=== PATIENT | female | born 1970 | race African-American/Black ===

== ENCOUNTER 2017-04-24 15:49 | Emergency (ER) | payer OTHER ==
[2017-04-24 15:54] VITALS: BP 137/87; PULSE 96; TEMP 98.3; BMI 28.9
--- NOTE | 2017-04-24 16:31 | PDOC ---
History of Present Illness - General Chief Complaint: Pain Stated Complaint: RT ARM LUMP Time Seen by Provider: 04/24/17 16:06 History Source: Patient Exam Limitations: No Limitations - History of Present Illness Initial Comments: 04/24/17 16:23 46 yr female with c/o right upper arm swelling noticed yesterday. Pt denies trauma. Pt states slight tender to touch. pt has DM< HTN, high cholesterol. Occurred: reports: yesterday Severity: reports: mild Upper Extremity Pain Location: right: arm (distsal humerus soft tissue swelling) Method of Injury: reports: unknown Past History - Past Medical History Allergies/Adverse Reactions: Allergies Allergy/AdvReac Type Severity Reaction Status Date / Time insulin detemir Allergy Verified 04/24/17 15:55 [From Levemir] Home Medications: Ambulatory Orders Enalapril Maleate [Vasotec] 10 mg PO HS 09/14/14 Sitagliptin Phos/Metformin HCl [Janumet 50-1,000 mg Tablet] 1 tab PO BID Oxycodone HCl/Acetaminophen [Percocet 5-325 mg Tablet -] 1 combo PO Q6H PRN #10 tablet 09/15/14 Anemia: No Asthma: Yes Cancer: No Cardiac Disorders: No CVA: No COPD: No CHF: No Dementia: No Diabetes: Yes GI Disorders: No Disorders: No HTN: Yes Hypercholesterolemia: No Liver Disease: No Seizures: No Thyroid Disease: No - Surgical History Abdominal Surgery: No Appendectomy: No Cardiac Surgery: No Cholecystectomy: No Lung Surgery: No Neurologic Surgery: No Orthopedic Surgery: No - Family Disease History Family Disease History: Diabetes: Mother - Psycho/Social/Smoking Cessation Hx Anxiety: No Suicidal Ideation: No Smoking Status: No Smoking History: Never smoked Have you smoked in the past 12 months: No Number of Cigarettes Smoked Daily: 0 Hx Alcohol Use: No Drug/Substance Use Hx: No Substance Use Type: None Hx Substance Use Treatment: No *Physical Exam - Vital Signs Last Vital Signs Temp Pulse Resp BP Pulse Ox 98.3 F 96 H 20 137/87 98 04/24/17 15:50 04/24/17 15:50 04/24/17 15:50 04/24/17 15:50 04/24/17 15:50 - Physical Exam General Appearance: Yes: Nourished, Appropriately Dressed HEENT: positive: EOMI, ZAINA, TMs Normal, Pharynx Normal Neck: positive: Supple Respiratory/Chest: positive: Lungs Clear, Normal Breath Sounds Cardiovascular: positive: Regular Rhythm, Regular Rate Musculoskeletal: positive: Normal Inspection Extremity: positive: Normal Capillary Refill, Normal Range of Motion, Swelling ( inner uper arm 3cm tender soft tissue swelling, no abscess no fluctuance ) Integumentary: positive: Normal Color, Dry, Warm ED Treatment Course - RADIOLOGY Radiology Studies Ordered: Category Date Time Status UPPER EXTREMITY DOPPLER SINGLE [VASC] Stat Vascular 04/24/17 16:22 Ordered Medical Decision Making - Medical Decision Making 04/24/17 16:34 cc: right arm swelling soft tissue , no bony tenderness. FROM nv intact will r/o abscess, r/o dvt with ultrasound *DC/Admit/Observation/Transfer Diagnosis at time of Disposition: Arm swelling - Discharge Dispostion Disposition: HOME Condition at time of disposition: Good - Referrals Referrals: Charis Rachel MD [Primary Care Provider] - Nolberto Javier MD [Staff Physician] - - Patient Instructions Additional Instructions: follow with your doctor in 1-2 days for follow up or with the general surgeon if any worsening swelling or pain apply warm compresses to the area every 3hrs for 20 minutes take motrin as directed for pain avoid any overuse of the arm
== END 2017-04-24 18:34 | disposition home or self-care (01) ==
LOC: JERFT 15:49
DX: R22.31 Localized swelling, mass and lump, right upper limb (principal); I10 Essential (primary) hypertension; E11.9 Type 2 diabetes mellitus without complications; Z79.84 Long term (current) use of oral hypoglycemic drugs
CPT/HCPCS: 93971; 99281-25

== ENCOUNTER → 2017-06-15 | Day surgery (SDC) | payer OTHER ==
[2017-06-10 12:15] VITALS: BMI 28.9
[~2017-06-15] MED LIST: ACETAMINOPHEN WITH CODEINE 300MG/30MG TABLET PO PRN; BUPIVACAINE HCL/PF 0.5% (5MG/ML) 10 ML VIAL IJ ONE; BUPIVACAINE HCL/PF 0.5% (5MG/ML) 10 ML VIAL ONE; LIDOCAINE HCL 1%, 10 MG/ML (20ML VIAL) IJ ONE; LIDOCAINE HCL/PF 2% SDV 5ML VIAL ONE; MIDAZOLAM HCL 2 MG/2 ML SINGLE DOSE VIAL ONE; PROPOFOL 20 ML ONE
[2017-06-15 17:40] VITALS: BP 119/66; PULSE 81; TEMP 97.8
--- NOTE | 2017-06-16 10:37 | OP ---
DATE OF OPERATION: 06/15/2017 PREOPERATIVE DIAGNOSIS: Skin lesion and soft tissue mass, left anterior chest wall. POSTOPERATIVE DIAGNOSIS: Skin lesion and soft tissue mass, left anterior chest wall. PROCEDURE: Excision skin lesion, left anterior chest wall. SURGEON: Nolberto Javier MD ANESTHESIA: Local with IV sedation. OPERATIVE FINDINGS: There was an approximately 2-cm lesion of the anterior chest wall clinically consistent with either a dermatofibroma or a sebaceous cyst. The rest of the findings were unremarkable. PROCEDURE: The patient was placed on the operating room table in the supine position and the left anterior chest wall was prepped with ChloraPrep and draped in sterile fashion. A timeout was taken. An elliptical incision was mapped out around the lesion and the area was then infiltrated with 1% Xylocaine and 0.5% Marcaine in equal concentration. Excision was carried out with a scalpel and the excised specimen passed off the operative field and sent fresh for pathological examination. Hemostasis was secured with electrocautery and the wound copiously irrigated with sterile saline. Hemostasis was again verified and then the incision was closed in layers with interrupted 3-0 Vicryl for the deep dermis and 4-0 Biosyn in a subcuticular continuous fashion to reapproximate the skin edges. Steri-Strips, fluffs and dry, sterile dressings were placed, and the procedure terminated at this point. The patient was transferred to the postanesthesia care unit in stable condition, awake and alert. ESTIMATED BLOOD LOSS: Minimal. DRAINS: None. SPECIMEN: Skin lesion to Pathology. I, Nolberto Javier, was physically present in the operating room from the time the patient was placed on the operating room table until she was transferred to the postanesthesia care unit in my accompaniment. MD ESLA Valdez/[id number]
--- NOTE | 2017-06-16 13:30 | PATH ---
Surgical Pathology Report Patient Name: DIANA HAWKINS [facility]. Rec. #: [id number] /Age/Gender: 1970 (Age: 46) / F Account: [id number] Location: [facility] SURGICAL Taken: 06/15/2017 Received: 06/15/2017 Reported: 06/16/2017 Physicians: Nolberto Javier MD Specimen(s) Received SKIN EXCISION LEFT ANTERIOR CHEST WALL Clinical History Skin lesion left chest wall: sebaceous cyst vs dermatofibroma Final Diagnosis SKIN, ANTERIOR CHEST WALL, LESION, EXCISION: PILAR (TRICHILEMMAL) CYST. Electronically Signed Dayo Mahoney M.D. Gross Description Received in formalin labeled "skin lesion left anterior chest wall" is a 2.8 x 1.8 cm cohen, elliptical, unoriented portion of skin excised to depth of 1.2 cm. The epidermal surface displays a 0.9 x 0.7 cm brown, raised subepidermal lesion. Sectioning reveals an intact cystic structure. Opener Verifier [employer] sections are submitted in 2 cassettes. /06/15/2017 saudi/06/15/2017
== END | disposition home or self-care (01) ==
LOC: JASU-SURG 10:11
PROVIDERS: ATTEND Surgery
PROC: 0JB60ZZ Excision of Chest Subcutaneous Tissue and Fascia, Open Approach (ICD-10-PCS; principal; 2017-06-15 12:00)
DX: D21.3 Benign neoplasm of connective and other soft tissue of thorax (principal)
CPT/HCPCS: 84703; 88305-TC

== ENCOUNTER 2018-09-03 15:10 | Emergency (ER) | payer OTHER ==
[2018-09-03 15:27] VITALS: BMI 29.2
--- NOTE | 2018-09-03 15:42 | PDOC ---
History of Present Illness - General Chief Complaint: Pain, Acute Stated Complaint: CHEST PAIN - History of Present Illness Initial Comments: The patient is a 47F w/ a history of HTN, T2DM (A1c 10), and asthma who presents for evaluation of 2d of chest tightness, SOB (non-exertional) with associated non-productive cough, sore throat, and generalized myalgias and malaise. She reports 1 episode of NB diarrhea this morning. Denies wheeze, recent use of her inhaler. Denies sick contacts. Denies flu vaccine this year. Denies fevers, DANIEL, vision changes, N/V, dysuria/hematuria, or changes in sensation Has not tried taking anything at home for her symptoms. PCP: Dr. Rachel, has appt 09/2509/03/18 16:04 Past History - Past Medical History Allergies/Adverse Reactions: Allergies Allergy/AdvReac Type Severity Reaction Status Date / Time insulin detemir Allergy Verified 09/03/18 15:24 [From Levemir] Home Medications: Ambulatory Orders Enalapril Maleate [Vasotec] 5 mg PO DAILY 09/14/14 Aspirin [Aspirin EC] 81 mg PO DAILY 06/10/17 Glipizide [Glipizide ER] 2.5 mg PO BID 06/10/17 Metformin HCl [Metformin HCl ER] 1,000 mg PO BID 06/10/17 Multivitamins [Tab-A-Vit -] 1 tab PO DAILY 06/10/17 Cholecalciferol (Vitamin D3) [Vitamin D3 -] 50,000 unit PO WEEKLY 09/03/18 Anemia: No Asthma: Yes ((WITH ALLERGIES OR A COLD") Cancer: No Cardiac Disorders: No CVA: No COPD: No CHF: No Dementia: No Diabetes: Yes GI Disorders: No Disorders: No HTN: Yes Hypercholesterolemia: No Liver Disease: No Seizures: No Thyroid Disease: No - Surgical History Abdominal Surgery: No Appendectomy: No Cardiac Surgery: No Cholecystectomy: No Lung Surgery: No Neurologic Surgery: No Orthopedic Surgery: No - Family Disease History Family Disease History: Diabetes: Mother - Suicide/Smoking/Psychosocial Hx Smoking Status: No Smoking History: Never smoked Have you smoked in the past 12 months: No Number of Cigarettes Smoked Daily: 0 Hx Alcohol Use: No Drug/Substance Use Hx: No Substance Use Type: None Hx Substance Use Treatment: No Review of Systems - Review of Systems Able to Perform ROS?: Yes Comments:: GENERAL/CONSTITUTIONAL: Denies fever or chills. No weakness HEAD, EYES, EARS, NOSE AND THROAT: +sore throat; No change in vision. No ear pain or discharge. CARDIOVASCULAR: +chest pain & shortness of breath RESPIRATORY: +non-productive cough; denies wheezing or hemoptysis GASTROINTESTINAL: +NB diarrhea; No nausea, vomiting GENITOURINARY: No dysuria, frequency, or change in urination MUSCULOSKELETAL: +generalized myalgias; +hx of OA SKIN: No rash NEUROLOGIC: No headache, vertigo, loss of consciousness, or change in strength/ sensation ENDOCRINE: No increased thirst. No abnormal weight change HEMATOLOGIC/LYMPHATIC: No anemia, easy bleeding, or history of blood clots ALLERGIC/IMMUNOLOGIC: No hives or skin allergy 09/03/18 16:17 Is the patient limited Kinyarwanda proficient: No *Physical Exam - Vital Signs Last Vital Signs Temp Pulse Resp BP Pulse Ox 99.5 F 108 H 20 140/97 98 09/03/18 15:18 09/03/18 15:18 09/03/18 15:18 09/03/18 15:18 09/03/18 15:18 - Physical Exam Comments: GENERAL: Awake, alert, and fully oriented, in no acute distress HEAD: No signs of trauma, normocephalic, atraumatic EYES: PERRLA, EOMI, sclera anicteric, conjunctiva clear ENT: Hearing grossly normal, nares patent, oropharynx clear without exudates. Moist mucosa NECK: Normal ROM, supple, mild cervical TTP; trachea midline LUNGS: No distress, speaks full sentences, clear to auscultation bilaterally HEART: Regular rate and rhythm, normal S1 and S2, no murmurs appreciated, peripheral pulses normal and equal bilaterally ABDOMEN: Soft, mild upper abd TTP w/o rebound or guarding; normoactive bowel sounds. EXTREMITIES : Normal inspection, Normal range of motion, no edema. No clubbing or cyanosis NEUROLOGICAL: Cranial nerves II through XII grossly intact. Normal speech, no focal sensorimotor deficits SKIN: Warm, Dry, normal turgor, no rashes or lesions noted 09/03/18 16:20 ED Treatment Course - LABORATORY CBC & Chemistry Diagram: 09/03/18 16:22 09/03/18 17:08 Medical Decision Making - Medical Decision Making The patient is a 47F who presents for evaluation of 2d of cough, chest tightness , myalgia/malaise, and 1 episode of NB diarrhea. Pt w/o flu vaccine. Pain/SOB non-exertional. Ddx: URI/influenza/PNA, ACS; considered PNX, metabolic derangement; not likely AD, esophagitis/perforation ED Course CMP, CBC, cardiac enzymes, influenza swab ECG CXR Tylenol 975mg PO once 1L NS -Will re-evaluate s/p fluids/tylenol 09/03/18 16:22 Heart rate improved s/p IVF. 96. Pt PERC neg Repeat labs pending Patient reports pain/discomfort much improved s/p Tylenol 09/03/18 17:40 Trop I neg Lytes wnl No GABBI 09/03/18 17:45 HR 101, HR fluid responsive, will give additional 1L NS 09/03/18 18:12 Continues to report feeling improved. 09/03/18 19:07 HR improved. Patient reports symptoms largely resolved. Denies chest pain or SOB Plan for D/C w/ PCP f/u Discharge instructions and return precautions Patient verbalized understanding and is in agreement Dispo: Home 09/03/18 19:32 *DC/Admit/Observation/Transfer Diagnosis at time of Disposition: URI (upper respiratory infection) Qualifiers: URI type: unspecified URI Qualified Code(s): J06.9 - Acute upper respiratory infection, unspecified - Discharge Dispostion Disposition: HOME Condition at time of disposition: Stable Decision to Admit order: No - Referrals Referrals: Charis Rachel MD [Primary Care Provider] - - Patient Instructions Printed Discharge Instructions: DI for Viral Upper Respiratory Infection -- Adult Additional Instructions: You were seen in the Emergency Department today for evaluation of upper respiratory symptoms with generalized aches. You were found to be influenza negative. Please review the handouts provided at discharge. Follow up with your primary care provider within the next 1-4 days. Return to the Emergency Department if you develop fevers/chills, chest pain, shortness of breath, worsening symptoms, or any new/concerning symptoms - Post Discharge Activity Forms/Work/School Notes: Back to Work
[2018-09-03] MEDS ORDERED: ACETAMINOPHEN 325 MG TABLET (FP) PO ONE (15:57)
[2018-09-03] MEDS ORDERED: ACETAMINOPHEN 325 MG TABLET (FP) ONE (16:25)
--- NOTE | 2018-09-03 16:25 | PDOC ---
Attending Attestation - Resident Resident Name: Dino Alexander - ED Attending Attestation I have performed the following: I have examined & evaluated the patient, The case was reviewed & discussed with the resident, I agree w/resident's findings & plan, Exceptions are as noted - HPI HPI: 09/03/18 16:21 47 F with h/o HTN, DM, asthma presenting to ED with chest pressure, bodyaches, and fevers since yesterday. Pt reports midsternal chest pressure associated with cough and sore throat. Also endorses diarrhea and bodyaches. Denies abdominal pain. Denies N/V. Denies leg swelling. No recent travel/ immobilization. Had fever with Tmax 101 today. Did not take anything for it. Pt is not on OCPs, no h/o DVT/PE. - Physicial Exam PE: 09/03/18 16:24 "GENERAL: Awake, alert, and fully oriented, in no acute distress. HEAD: No signs of trauma EYES: PERRLA, EOMI, sclera anicteric, conjunctiva clear ENT: Auricles normal inspection, hearing grossly normal, nares patent, oropharynx clear without exudates. Moist mucosa NECK: Nontender, no stepoffs, Normal ROM, supple, no lymphadenopathy, JVD, or masses LUNGS: Breath sounds equal, clear to auscultation bilaterally. No wheezes, and no crackles HEART: Regular rate and rhythm, normal S1 and S2, no murmurs, rubs or gallops ABDOMEN: Soft, nontender, normoactive bowel sounds. No guarding, no rebound. No masses EXTREMITIES: Normal range of motion, no edema. No clubbing or cyanosis. No cords, erythema, or tenderness NEUROLOGICAL: Cranial nerves II through XII intact. 5/5 strength and sensation in all extremities, Normal speech, normal gait, normal cerebellar function SKIN: Warm, Dry, normal turgor, no rashes or lesions noted." - Medical Decision Making 09/03/18 16:24 47 F with chest pressure, cough, bodyaches, and fever. Likely viral URI, possible flu. Pt with some cardiac risk factors, so will r/o ACS with EKG and trop. No evidence of DVT on exam, no risk factors for DVT, making PE unlikely. - Labs, trop - CXR - Tylenol - Reassess 09/03/18 17:48 Labs wnl Pt reassessed - HR now 90s. PERC score 0. No indication for ddimer or CTA to r/ o PE. Trop negative. Given duration of symptoms >24 hours, single trop sufficient to r /o ACS Pt states she feels better after tylenol. Pt is well appearing, with normal vitals. Clinically stable for DC at this time. I discussed the physical exam findings, ancillary test results and final diagnoses with the patient. I answered all of the patient's questions. The patient was satisfied with the care received and felt comfortable with the discharge plan and treatment plan. The patient agrees to follow up with the primary care physician within 24-72 hours. Heart Score/ECG Review - History History: Slightly suspicious - Electrocardiogram EKG: Normal - Age Age: 45-65 - Risk Factors Risk Factors Heart Score: Yes Hx Hypertension, Yes Hx Diabetes Based on the list above the patient has:: 1-2 risk factors - Troponin Troponin: </= normal limit - Score Heart Score - Total: 2 - ECG Impressions Comment:: 09/03/18 16:59 Sinus tachycardia, no AN/STDs, no TWIs, axis wnl, intervals wnl, rate 109
[2018-09-03 16:29] LABS: HEMATOCRIT 36.9 % (32.4-45.2); HEMOGLOBIN 12.8 GM/dL (10.7-15.3); MCH 26.2 pg (25.7-33.7); MCHC 34.6 g/dl (32.0-36.0); MEAN CELL VOLUME 75.7 fl (80-96); MEAN PLT VOLUME 9.3 fl (7.5-11.1); PLATELET COUNT 223 K/MM3 (134-434); RBC 4.88 M/mm3 (3.60-5.2); WHITE BLOOD COUNT 4.4 K/mm3 (4.0-10.0)
[2018-09-03 17:42] LABS: ALBUMIN 3.6 g/dl (3.4-5.0); ALK PHOS 65 U/L (45-117); ANION GAP 9 MMOL/L (8-16); BILIRUBIN,TOTAL 0.7 mg/dL (0.2-1); BLOOD UREA NITROGEN 8 mg/dL (7-18); CALCIUM 8.8 mg/dL (8.5-10.1); CHLORIDE 103 mmol/L (98-107); CO2 25 mmol/L (21-32); CREATININE 0.6 mg/dL (0.55-1.3); GLUCOSE,RANDOM 178 mg/dL (74-106); POTASSIUM 3.6 mmol/L (3.5-5.1); SGOT/AST 19 U/L (15-37); SGPT/ALT 21 U/L (13-61); SODIUM 137 mmol/L (136-145); TOT PROT 6.7 g/dl (6.4-8.2)
[2018-09-03] MEDS ORDERED: SODIUM CHLORIDE 0.9% 500 ML INFUS.BAG IV ONE (18:12)
[2018-09-03 18:13] VITALS: TEMP 98.2
[2018-09-03 19:18] VITALS: BP 126/77; PULSE 94
--- NOTE | 2018-09-04 10:57 | EKG ---
Test Reason : Blood Pressure : / mmHG Vent. Rate : 109 BPM Atrial Rate : 109 BPM P-R Int : 130 ms QRS Dur : 086 ms QT Int : 332 ms P-R-T Axes : 053 -19 018 degrees QTc Int : 447 ms SINUS TACHYCARDIA OTHERWISE NORMAL ECG WHEN COMPARED WITH ECG OF 21-DEC-2012 15:02, NO SIGNIFICANT CHANGE WAS FOUND Confirmed by DOLORES CARRINGTON MD ([id number]) on 09/04/2018 10:57:02 AM Referred By: Confirmed By:DOLORES CARRINGTON MD
== END 2018-09-03 19:19 | disposition home or self-care (01) ==
LOC: JER 15:10
DX: J06.9 Acute upper respiratory infection, unspecified (principal); I10 Essential (primary) hypertension; E11.9 Type 2 diabetes mellitus without complications; Z79.84 Long term (current) use of oral hypoglycemic drugs
CPT/HCPCS: 36415; 71046-TC-FY; 80053; 82550; 82553; 84484; 85027; 87804; 93005; 93010; 99283-25

== ENCOUNTER 2019-03-12 13:01 | Emergency (ER) | payer OTHER | END 2019-03-12 14:10 | disposition home or self-care (01) | LOC: JERFT 13:01 ==

== ENCOUNTER 2020-11-05 04:24 | Day surgery (SDC) | payer OTHER ==
[2020-11-04 14:00] VITALS: BMI 30.3
[2020-11-05] MEDS ORDERED: INSULIN REGULAR HUMAN 100 UNITS/ML *VIAL SQ ONE (09:00)
[2020-11-05] MEDS ORDERED: MIDAZOLAM HCL 2 MG/2 ML SINGLE DOSE VIAL ONE (10:05)
[2020-11-05] MEDS ORDERED: ceFAZolin SODIUM 1 GM VIAL ONE (10:15)
[2020-11-05] MEDS ORDERED: DEXAMETHASONE SOD PHOSPHATE 4 MG/1 ML VIAL ONE (10:15)
[2020-11-05] MEDS ORDERED: ONDANSETRON 4 MG/2 ML VIAL ONE (10:15)
[2020-11-05] MEDS ORDERED: KETOROLAC TROMETHAMINE 30 MG/1 ML VIAL ONE (11:00)
[2020-11-05] MEDS ORDERED: ONDANSETRON 4 MG/2 ML VIAL IVPUSH PRN (11:16)
[2020-11-05] MEDS ORDERED: oxyCODONE HCL 5 MG TABLET PO PRN ×2 (11:16)
[2020-11-05] MEDS ORDERED: LACTATED RINGERS SOLUTION 1,000 ML IV SCH (11:30)
[2020-11-05 15:17] VITALS: BP 120/65; PULSE 90; TEMP 97.4
== END 2020-11-05 15:10 | disposition home or self-care (01) ==
LOC: JASU-SURG 04:24
PROVIDERS: ATTEND Orthopaedic Surgery
PROC: 0LQ30ZZ Repair Right Upper Arm Tendon, Open Approach (ICD-10-PCS; 2020-11-05)
PROC: 0JBD0ZZ Excision of Right Upper Arm Subcutaneous Tissue and Fascia, Open Approach (ICD-10-PCS; 2020-11-05)
PROC: 0PBF0ZZ Excision of Right Humeral Shaft, Open Approach (ICD-10-PCS; principal; 2020-11-05 09:30)
DX: M77.01 Medial epicondylitis, right elbow (principal); E11.9 Type 2 diabetes mellitus without complications; I10 Essential (primary) hypertension; Z79.4 Long term (current) use of insulin
CPT/HCPCS: 82962; 84703; 88304-TC; 88311-TC; 94760

== ENCOUNTER 2022-07-07 14:07 | Observation (INO) | payer OTHER ==
[2022-07-07] MEDS ORDERED: FAMOTIDINE 20 MG/50 ML IVPB 20 MG/50 ML MG IVPB ONE ×2 (15:05→15:27)
[2022-07-07] MEDS ORDERED: ACETAMINOPHEN 1000 MG/100 ML BAG IVPB ONE (15:06)
[2022-07-07] MEDS ORDERED: SODIUM CHLORIDE 0.9% 500 ML INFUS.BAG IV ONE (15:07)
[2022-07-07] MEDS ORDERED: MAG HYDROX/AL HYDROX/SIMETH -MYLANTA- ORAL SUSPENSION PO ONE (15:08)
[2022-07-07] MEDS ORDERED: ACETAMINOPHEN INJECTION 100 ML IVPB ONE (15:27)
[2022-07-07] MEDS ORDERED: MAG HYDROX/AL HYDROX/SIMETH 30 ML UNIT-DOSE CUP ONE (15:27)
[2022-07-07 16:21] LABS: INR 0.91 (0.83-1.09); PROTHROMBIN TIME (PATIENT) 10.5 SEC (9.7-13.0)
[2022-07-07 16:23] LABS: ACTIVATED PTT 20.9 SECONDS (25.2-36.5); CHLORIDE 104 mmol/L (98-107); SODIUM 140 mmol/L (136-145)
[2022-07-07 16:25] LABS: CALCIUM 10.2 mg/dL (8.5-10.1)
[2022-07-07 16:26] LABS: ALBUMIN 3.9 g/dl (3.4-5.0); ANION GAP 8 MMOL/L (8-16); BLOOD UREA NITROGEN 19.7 mg/dL (7-18); CO2 29 mmol/L (21-32); GLUCOSE,RANDOM 186 mg/dL (74-106); MAGNESIUM 2.2 mg/dL (1.8-2.4)
[2022-07-07 16:29] LABS: CREATININE 0.6 mg/dL (0.55-1.3); SGOT/AST 11 U/L (15-37); SGPT/ALT 25 U/L (13-61)
[2022-07-07 16:31] LABS: BILIRUBIN,TOTAL 0.6 mg/dL (0.2-1); TOT PROT 7.4 g/dl (6.4-8.2)
[2022-07-07 16:32] LABS: ALK PHOS 74 U/L (45-117)
[2022-07-07 16:42] LABS: BASO % 0.3 % (0-2.0); EOS % 1.1 % (0-4.5); HEMATOCRIT 41.6 % (32.4-45.2); HEMOGLOBIN 13.4 GM/dL (10.7-15.3); LYMPH % 51.8 % (8-40); MCH 24.9 pg (25.7-33.7); MCHC 32.2 g/dl (32.0-36.0); MEAN CELL VOLUME 77.4 fl (80-96); MONO % 6.5 % (3.8-10.2); NEUT % 40.3 % (42.8-82.8); PLATELET COUNT 198 10^3/uL (134-434); RBC 5.37 M/mm3 (3.60-5.2); RDW 14.7 % (11.6-15.6); WHITE BLOOD COUNT 5.8 K/mm3 (4.0-10.0)
[2022-07-07] MEDS ORDERED: INSULIN SLIDING SCALE (NOVOLOG) 1 VIAL SQ SCH (22:00)
[2022-07-08 00:01] VITALS: BMI 29.5
[2022-07-08 08:08] LABS: HEMATOCRIT 41.3 % (32.4-45.2); HEMOGLOBIN 12.9 GM/dL (10.7-15.3); MCH 24.3 pg (25.7-33.7); MCHC 31.3 g/dl (32.0-36.0); MEAN CELL VOLUME 77.5 fl (80-96); MEAN PLT VOLUME 9.5 fl (7.5-11.1); PLATELET COUNT 191 10^3/uL (134-434); RBC 5.33 M/mm3 (3.60-5.2); RDW 14.8 % (11.6-15.6); WHITE BLOOD COUNT 6.2 K/mm3 (4.0-10.0)
[2022-07-08 09:50] LABS: ALBUMIN 3.4 g/dl (3.4-5.0); BLOOD UREA NITROGEN 17.9 mg/dL (7-18); MAGNESIUM 2.1 mg/dL (1.8-2.4)
[2022-07-08 09:53] LABS: CREATININE 0.6 mg/dL (0.55-1.3)
[2022-07-08 09:55] LABS: ANISOCYTOSIS 1+; BILIRUBIN,TOTAL 0.5 mg/dL (0.2-1); MACROCYTOSIS 0; PLATELET ESTIMATE NORMAL; TOT PROT 6.4 g/dl (6.4-8.2)
[2022-07-08] MEDS ORDERED: ENALAPRIL MALEATE 5 MG TABLET PO SCH (10:00)
[2022-07-08] MEDS: ASPIRIN COATED 81 MG TABLET.EC PO SCH (10:08)
[2022-07-08 12:52] LABS: CALCIUM 9.6 mg/dL (8.5-10.1); N-TERMINAL BNP 10.1 pg/ml (5-125)
[2022-07-08] MEDS ORDERED: ATORVASTATIN CA 20 MG TABLET (FP) PO SCH (23:15)
[2022-07-09] MEDS: ASPIRIN COATED 81 MG TABLET.EC PO SCH (09:21)
[2022-07-09 09:26] VITALS: BP 136/79; PULSE 76; RESP 18; TEMP 98.5
== END 2022-07-09 10:44 | disposition home or self-care (01) ==
LOC: JER 14:07 → JERBED 18:05 → J4W 21:03
PROVIDERS: ADMIT Internal Medicine; ATTEND Family Medicine
PROC: 3E033NZ Introduction of Analgesics, Hypnotics, Sedatives into Peripheral Vein, Percutaneous Approach (ICD-10-PCS; principal; 2022-07-07)
PROC: 3E033GC Introduction of Other Therapeutic Substance into Peripheral Vein, Percutaneous Approach (ICD-10-PCS; 2022-07-07)
PROC: 3E0337Z Introduction of Electrolytic and Water Balance Substance into Peripheral Vein, Percutaneous Approach (ICD-10-PCS; 2022-07-07)
DX: R07.9 Chest pain, unspecified (principal); E11.9 Type 2 diabetes mellitus without complications; F41.1 Generalized anxiety disorder; R01.1 Cardiac murmur, unspecified; I10 Essential (primary) hypertension; K21.9 Gastro-esophageal reflux disease without esophagitis; R00.2 Palpitations; Z88.8 Allergy status to other drugs, medicaments and biological substances; J45.909 Unspecified asthma, uncomplicated; F31.9 Bipolar disorder, unspecified; F19.11 Other psychoactive substance abuse, in remission
CPT/HCPCS: 36415; 71046-TC-FY; 71275-TC; 74174-TC; 80053; 80061; 82962; 83036; 83735; 83880; 84439; 84443; 84484; 85025; 85610; 85730; 93005; 93010; 93306-TC; 96365; 96375; 99285-25; C9803-CS; G0378; U0003; U0005

== ENCOUNTER 2022-11-07 06:12 | Emergency (ER) | payer OTHER ==
[2022-11-07 06:26] VITALS: BMI 29.4
[2022-11-07 08:57] LABS: BASO % 0.3 % (0-2.0); EOS % 0.6 % (0-4.5); HEMATOCRIT 38.4 % (32.4-45.2); HEMOGLOBIN 12.3 GM/dL (10.7-15.3); LYMPH % 26.8 % (8-40); MCHC 32.1 g/dl (32.0-36.0); MEAN CELL VOLUME 77.9 fl (80-96); MEAN PLT VOLUME 10.3 fl (7.5-11.1); MONO % 6.1 % (3.8-10.2); NEUT % 66.2 % (42.8-82.8); PLATELET COUNT 224 10^3/uL (134-434); RBC 4.94 M/mm3 (3.60-5.2); RDW 14.4 % (11.6-15.6); WHITE BLOOD COUNT 8.6 K/mm3 (4.0-10.0)
[2022-11-07 09:04] LABS: INR 0.98 (0.83-1.09); PROTHROMBIN TIME (PATIENT) 11.3 SEC (9.7-13.0)
[2022-11-07 09:07] LABS: ACTIVATED PTT 28.7 SECONDS (25.2-36.5)
[2022-11-07 09:20] LABS: ALBUMIN 3.8 g/dl (3.4-5.0); CALCIUM 9.4 mg/dL (8.5-10.1)
[2022-11-07 09:22] LABS: BLOOD UREA NITROGEN 16.8 mg/dL (7-18)
[2022-11-07 09:23] LABS: CREATININE 0.8 mg/dL (0.55-1.3)
[2022-11-07 09:25] LABS: BILIRUBIN,TOTAL 0.6 mg/dL (0.2-1); TOT PROT 7.3 g/dl (6.4-8.2)
[2022-11-07] MEDS ORDERED: ONDANSETRON 4 MG/2 ML VIAL IVPUSH ONE (09:31)
[2022-11-07] MEDS ORDERED: ACETAMINOPHEN 325 MG TABLET (FP) PO ONE (09:31)
[2022-11-07] MEDS ORDERED: ACETAMINOPHEN 325 MG TABLET (FP) ONE (10:19)
[2022-11-07] MEDS ORDERED: ONDANSETRON 4 MG/2 ML VIAL ONE (10:20)
[2022-11-07 11:57] VITALS: TEMP 98.5
[2022-11-07 12:57] VITALS: BP 138/78; PULSE 92; RESP 18
== END 2022-11-07 12:56 | disposition home or self-care (01) ==
LOC: JER 06:12
PROC: 3E033GC Introduction of Other Therapeutic Substance into Peripheral Vein, Percutaneous Approach (ICD-10-PCS; principal; 2022-11-07)
DX: R11.0 Nausea (principal); R42 Dizziness and giddiness; I10 Essential (primary) hypertension
CPT/HCPCS: 0241U-QW; 36415; 71046-TC-FY; 80053; 84484; 85025; 85610; 85730; 93005; 93010; 99285-25

== ENCOUNTER 2023-02-22 19:05 | Emergency (ER) | payer OTHER ==
[2023-02-22 19:09] VITALS: BP 149/80; PULSE 66; RESP 18; TEMP 97.6; BMI 29.8
== END 2023-02-22 20:00 | disposition left against medical advice (07) ==
LOC: JER 19:05
DX: R42 Dizziness and giddiness (principal)
CPT/HCPCS: 99281-25

== ENCOUNTER 2023-03-27 19:36 | Emergency (ER) | payer OTHER ==
[2023-03-27 19:42] VITALS: RESP 18; TEMP 97.5; BMI 29.2
[2023-03-27] MEDS ORDERED: LACTATED RINGERS SOLUTION 1000 ML INFUS.BAG IV ONE (19:56)
[2023-03-27 20:36] LABS: BASO % 0.5 % (0-2.0); HEMOGLOBIN 12.7 GM/dL (10.7-15.3); LYMPH % 30.7 % (8-40); MCH 24.8 pg (25.7-33.7); MCHC 32.7 g/dl (32.0-36.0); MEAN CELL VOLUME 75.9 fl (80-96); MEAN PLT VOLUME 9.6 fl (7.5-11.1); MONO % 4.7 % (3.8-10.2); NEUT % 61.1 % (42.8-82.8); PLATELET COUNT 225 10^3/uL (134-434); RBC 5.14 M/mm3 (3.60-5.2); RDW 14.5 % (11.6-15.6)
[2023-03-27 20:44] LABS: PROTHROMBIN TIME (PATIENT) 11.6 SEC (9.7-13.0)
[2023-03-27 20:53] LABS: POTASSIUM 4.5 mmol/L (3.5-5.1)
[2023-03-27 20:55] LABS: CALCIUM 9.3 mg/dL (8.5-10.1)
[2023-03-27 20:56] LABS: ALBUMIN 3.6 g/dl (3.4-5.0); BLOOD UREA NITROGEN 13.7 mg/dL (7-18); MAGNESIUM 1.9 mg/dL (1.8-2.4)
[2023-03-27 20:58] LABS: PH,URINE 5.5 (5.0-8.0); URINE APPEARANCE CLEAR; URINE BILIRUBIN NEGATIVE (NEGATIVE); URINE COLOR YELLOW; URINE GLUCOSE (UA) TRACE (NEGATIVE); URINE KETONE NEGATIVE (NEGATIVE); URINE LEUK ESTERASE NEGATIVE (NEGATIVE); URINE NITRITE NEGATIVE (NEGATIVE); URINE PROTEIN NEGATIVE (NEGATIVE); URINE UROBILINOGEN 0.2 mg/dL (0.2-1.0)
[2023-03-27 20:59] LABS: CREATININE 0.7 mg/dL (0.55-1.3)
[2023-03-27 21:01] LABS: BILIRUBIN,TOTAL 0.7 mg/dL (0.2-1)
[2023-03-27 21:04] LABS: N-TERMINAL BNP 24.7 pg/ml (5-125)
[2023-03-27 22:30] VITALS: BP 132/84; PULSE 72
== END 2023-03-27 22:30 | disposition home or self-care (01) ==
LOC: JER 19:36
DX: R42 Dizziness and giddiness (principal); M54.2 Cervicalgia; M79.601 Pain in right arm; M25.511 Pain in right shoulder; G89.29 Other chronic pain
CPT/HCPCS: 36415; 71045-TC-FY; 80053; 81003; 83735; 83880; 84484; 85025; 85610; 85730; 87086; 93005; 93010; 99285-25

== ENCOUNTER 2023-12-01 05:45 | Emergency (ER) | payer OTHER ==
[2023-12-01 05:56] VITALS: BMI 28.1
[2023-12-01] MEDS ORDERED: ACETAMINOPHEN INJECTION 100 ML IVPB ONE (07:35)
[2023-12-01] MEDS ORDERED: ONDANSETRON 4 MG/2 ML VIAL ONE (07:35)
[2023-12-01] MEDS: LACTATED RINGERS SOLUTION 1000 ML INFUS.BAG IV ONE (07:45)
[2023-12-01] MEDS: ACETAMINOPHEN 1000 MG/100 ML BAG IVPB ONE (07:45)
[2023-12-01] MEDS: ONDANSETRON 4 MG/2 ML VIAL IVPUSH ONE (07:45)
[2023-12-01 07:49] LABS: BASO % 0.1 % (0-2.0); EOS % 0.4 % (0-4.5); HEMATOCRIT 46.9 % (32.4-45.2); HEMOGLOBIN 15.3 GM/dL (10.7-15.3); MCH 25.5 pg (25.7-33.7); MCHC 32.6 g/dl (32.0-36.0); MEAN CELL VOLUME 78.1 fl (80-96); MEAN PLT VOLUME 9.1 fl (7.5-11.1); MONO % 7.6 % (3.8-10.2); NEUT % 84.9 % (42.8-82.8); PLATELET COUNT 176 10^3/uL (134-434); RDW 15.2 % (11.6-15.6)
[2023-12-01 08:01] LABS: POTASSIUM 4.7 mmol/L (3.5-5.1)
[2023-12-01 08:03] LABS: CALCIUM 9.7 mg/dL (8.5-10.1)
[2023-12-01 08:04] LABS: ALBUMIN 4.3 g/dl (3.4-5.0); BLOOD UREA NITROGEN 17.6 mg/dL (7-18); MAGNESIUM 2.4 mg/dL (1.8-2.4)
[2023-12-01 08:07] LABS: CREATININE 0.8 mg/dL (0.55-1.3)
[2023-12-01 08:08] LABS: BILIRUBIN,TOTAL 0.8 mg/dL (0.2-1); TOT PROT 7.9 g/dl (6.4-8.2)
[2023-12-01] MEDS ORDERED: FAMOTIDINE 20 MG/50 ML IVPB 20 MG/50 ML MG IVPB ONE (09:12)
[2023-12-01] MEDS: FAMOTIDINE 20 MG/50 ML IVPB 20 MG/50 ML MG IVPB ONE (09:30)
[2023-12-01 10:30] LABS: URINE APPEARANCE CLEAR; URINE BILIRUBIN NEGATIVE (NEGATIVE); URINE COLOR YELLOW; URINE GLUCOSE (UA) 3+ (NEGATIVE); URINE KETONE 1+ (NEGATIVE)
[2023-12-01 10:31] LABS: URINE LEUK ESTERASE NEGATIVE (NEGATIVE); URINE NITRITE NEGATIVE (NEGATIVE); URINE PROTEIN NEGATIVE (NEGATIVE); URINE UROBILINOGEN 0.2 mg/dL (0.2-1.0)
[2023-12-01 10:46] VITALS: BP 137/61; PULSE 99; RESP 18; TEMP 98.6
== END 2023-12-01 10:46 | disposition home or self-care (01) ==
LOC: JER 05:45
PROC: 3E033GC Introduction of Other Therapeutic Substance into Peripheral Vein, Percutaneous Approach (ICD-10-PCS; principal; 2023-12-01)
PROC: 3E033NZ Introduction of Analgesics, Hypnotics, Sedatives into Peripheral Vein, Percutaneous Approach (ICD-10-PCS; 2023-12-01)
PROC: 3E033GC Introduction of Other Therapeutic Substance into Peripheral Vein, Percutaneous Approach (ICD-10-PCS; 2023-12-01)
DX: R11.2 Nausea with vomiting, unspecified (principal); R19.7 Diarrhea, unspecified; R10.84 Generalized abdominal pain; R10.13 Epigastric pain; R42 Dizziness and giddiness; Z20.822 Contact with and (suspected) exposure to COVID-19
CPT/HCPCS: 0241U-QW; 36415; 71045-TC-FY; 80053; 81003; 82962; 83690; 83735; 84484; 85025; 87086; 93005; 93010; 99285-25; J0131